=== PATIENT | female | born 1960 | race Caucasian/White ===

== ENCOUNTER → 2017-05-04 | Outpatient (CLI) | payer BC ==
[~2017-05-04] MED LIST: BUSPAR DIVIDOSE15 MG PO; CIPRO 500MG TA500 MG PO; CONCERTA36 MG PO; EFFEXOR-XR150 MG PO; FLAGYL500 MG PO; HYDROCODONE/APAP; MOTRIN 600600 MG/TAB PO; NEXIUM40 MG PO; PREMARIN 0.60.625 M1 PO; PRILOSEC 20MG20 MG PO; TOPAMAX 100MG100 MG PO; TRAZODONE HCL100 MG PO; ZOLOFT100 MG PO; glipizide; hormone
== END ==
LOC: MC.RAD 08:20
DX: Z12.31 Encounter for screening mammogram for malignant neoplasm of breast (principal)

== ENCOUNTER → 2018-09-12 | Outpatient (CLI) | payer BC | LOC: MC.RAD 15:21 | DX: Z12.31 Encounter for screening mammogram for malignant neoplasm of breast (principal) ==

== ENCOUNTER 2020-03-12 10:58 | Outpatient (RCR) | payer OTHER | END 2020-06-10 | disposition home or self-care (01) | LOC: WSOH | DX: S60.352A Superficial foreign body of left thumb, initial encounter (principal); K21.9 Gastro-esophageal reflux disease without esophagitis; E11.9 Type 2 diabetes mellitus without complications; E78.00 Pure hypercholesterolemia, unspecified; I10 Essential (primary) hypertension; T78.40XA Allergy, unspecified, initial encounter; Y99.0 Civilian activity done for income or pay; Z90.710 Acquired absence of both cervix and uterus; Z98.890 Other specified postprocedural states ==

== ENCOUNTER 2020-11-16 13:56 | Outpatient (RCR) | payer OTHER | END 2021-01-30 | disposition home or self-care (01) | LOC: WSOH | DX: S60.221A Contusion of right hand, initial encounter (principal); S40.021A Contusion of right upper arm, initial encounter; F32.9 Major depressive disorder, single episode, unspecified; E78.00 Pure hypercholesterolemia, unspecified; I10 Essential (primary) hypertension; E11.9 Type 2 diabetes mellitus without complications; K21.9 Gastro-esophageal reflux disease without esophagitis; T78.40XA Allergy, unspecified, initial encounter; Z90.710 Acquired absence of both cervix and uterus; Z98.890 Other specified postprocedural states; Y99.0 Civilian activity done for income or pay ==

== ENCOUNTER 2022-09-28 21:59 | Emergency (ER) | payer BC ==
[~2022-09-28] VITALS: Ht 160 cm; Wt 95.5 kg
[2022-09-28 22:05] VITALS: TEMP 98.1
[2022-09-29 00:23] VITALS: BP 126/59; PULSE 86
== END 2022-09-29 00:29 | disposition home or self-care (01) ==
LOC: COL.ER 21:59
DX: S06.9X1A Unspecified intracranial injury with loss of consciousness of 30 minutes or less, initial encounter (principal); S13.4XXA Sprain of ligaments of cervical spine, initial encounter; S43.402A Unspecified sprain of left shoulder joint, initial encounter; S00.01XA Abrasion of scalp, initial encounter; W08.XXXA Fall from other furniture, initial encounter; Y92.320 Baseball field as the place of occurrence of the external cause
CPT/HCPCS: J2405